=== PATIENT | male | born 1955 | race Caucasian/White ===

== ENCOUNTER → 2016-11-19 | Outpatient (CLI) | payer BC, OTHER ==
[~2016-11-19] MED LIST: AMOX500C3 PO; BUPR-79 PO; LISI-794 PO; MISCTAB30 PO; MULT-506 PO; OMEGCAP2 PO; SILD100T PO; ZNTT/150 PO
== END | disposition home or self-care (01) ==
LOC: C.LABBFT 13:31
PROVIDERS: ATTEND Internal Medicine
DX: Z11.59 Encounter for screening for other viral diseases (principal)

== ENCOUNTER → 2017-02-13 | Outpatient (CLI) | payer BC ==
--- NOTE | 2017-02-13 08:18 | DIAGNOSTIC IMAGING REPORT ---
RENAL ULTRASOUND HISTORY: Renal cyst. Follow-up. COMPARISON: Abdominal MRI 02/02/2016. FINDINGS: Right kidney: 12.1 cm. No hydronephrosis. Mild cortical lobulation/thinning. Normal corticomedullary differentiation. Left kidney: 17.6 cm. This includes the cysts within this measurement. No hydronephrosis. Mild cortical lobulation/thinning. Normal cortical measured differentiation. Multiple cysts within the left kidney. There may be septated cyst within the interpolar region versus multiple cysts. These measure in total 7.1 x 5.4 x 4.8 cm. These are not significantly changed. There is also a stable 3.7 cm cyst within the upper pole. Bladder: No bladder wall thickening. The bilateral ureteral jets were identified. Multiple hyperechoic lesions within the liver consistent with hemangiomas. Dominant lesion measures 2.2 cm. This remains unchanged IMPRESSION: 1. Multiple left renal cysts which are not significantly changed. 2. Mild bilateral cortical renal thinning/lobulation. 3. No hydronephrosis. 4. No significant change in the hyperechoic lesions within the liver which favor hemangiomas. Electronically signed by: Andrzej Pierson M.D. 02/13/2017 8:16 AM Dictated Date/Time: 02/13/2017 8:12 AM
[2017-02-13 09:55] LABS: BLOOD UREA NITROGEN 20 mg/dl (7-18); CREATININE 0.91 mg/dl (0.60-1.40)
[2017-02-13 09:56] LABS: BUN/CREATININE RATIO 22.3 (10-20)
[2017-02-13 10:00] LABS: PROSTATE SPECIFIC ANTIGEN < 0.010 ng/ml (0.000-4.000)
== END | disposition home or self-care (01) ==
LOC: C.ULTR 07:23
PROVIDERS: ATTEND Urology
DX: N28.1 Cyst of kidney, acquired (principal); N52.9 Male erectile dysfunction, unspecified; C61 Malignant neoplasm of prostate

== ENCOUNTER → 2017-02-28 | Outpatient (CLI) | payer BC ==
[2017-02-28 18:22] LABS: ALT/SGPT 42 U/L (12-78); AST/SGOT 29 U/L (15-37); BLOOD UREA NITROGEN 31 mg/dl (7-18); BUN/CREATININE RATIO 28.4 (10-20); CALCIUM 9.1 mg/dl (8.5-10.1); CARBON DIOXIDE 29 mmol/L (21-32); CHLORIDE 101 mmol/L (98-107); GLUCOSE 124 mg/dl (70-99); POTASSIUM 3.8 mmol/L (3.5-5.1); SODIUM 138 mmol/L (136-145)
[2017-02-28 19:02] LABS: CHOLESTEROL/HDL RATIO 2.6
--- NOTE | 2017-03-30 14:12 | PROGRESS NOTE ---
DATE: 03/30/2017 SUBJECTIVE: Adriano looks good today, but his conversation is still rambling and tangential but to my recollection this is his baseline. He is apparently going to be going home either today or tomorrow. I do not see any medical issues that have risen and again, his evaluation with MRI scans, EEGs, laboratory studies, etc have failed to detect any reason for his transient confusion, which now seemingly has cleared. His ammonia levels are normal. His back on his L-carnitine. His phenobarb level is in the higher range, but I think he probably stays there and at this point, I do not think we need to do anything else neurologically. He probably should be followed episodically by local neurologist and in the past, he has seen Dr. Lee. I do not know if he has seen anybody in the [facility] since then, but it might not be a bad idea to have him seen on a routine basis, probably yearly by Dr. Bateman or myself, BENY Ledesma or Brittney Rico PA-C. These arrangements can be made after discharge. BORIS
== END | disposition home or self-care (01) ==
LOC: C.LABBFT 11:50
PROVIDERS: ATTEND Physician Assistant Medical
DX: E78.5 Hyperlipidemia, unspecified (principal); I10 Essential (primary) hypertension

== ENCOUNTER → 2017-05-13 | Outpatient (CLI) | payer BC | END | disposition home or self-care (01) | LOC: C.RDSM 07:30 | PROVIDERS: ATTEND Physical Medicine & Rehabilitation Sports Medicine | DX: Z96.651 Presence of right artificial knee joint (principal) ==

== ENCOUNTER → 2017-07-16 | Outpatient (CLI) | payer BC ==
[2017-07-16 13:28] LABS: ALT/SGPT 35 U/L (12-78); AST/SGOT 29 U/L (15-37); BLOOD UREA NITROGEN 28 mg/dl (7-18); CHOLESTEROL 131 mg/dl (0-200)
[2017-07-16 13:31] LABS: CHOLESTEROL/HDL RATIO 1.9; HDL CHOLESTEROL 70 mg/dl; LDL CHOLESTEROL CALCULATED 51 mg/dl; TRIGLYCERIDES 52 mg/dl (0-150); VERY LOW DENSITY LIPOPROT CALC 10 mg/dl
== END | disposition home or self-care (01) ==
LOC: C.LABBFT 07:38
PROVIDERS: ATTEND Physician Assistant Medical
DX: E78.5 Hyperlipidemia, unspecified (principal); I10 Essential (primary) hypertension

== ENCOUNTER → 2017-07-24 | Outpatient (CLI) | payer BC ==
--- NOTE | 2017-07-24 10:24 | DIAGNOSTIC IMAGING REPORT ---
LEFT WRIST 4 VIEWS CLINICAL HISTORY: Left wrist pain. Fall. FINDINGS: 4 views of left wrist are obtained. No prior studies are available for comparison at the time of dictation. The skeletal structures are well mineralized. No fracture is identified. Arthritic change is seen at the distal radioulnar articulation with bony overgrowth and negative ulnar variance. The overlying soft tissues are within normal limits. IMPRESSION: 1. No fracture is identified. Consider short-term radiographic follow-up if there is strong clinical concern for occult fracture. 2. Arthritic change is noted at the distal radioulnar joint. Electronically signed by: Jg Munoz M.D. 07/24/2017 10:23 AM Dictated Date/Time: 07/24/2017 10:21 AM
== END | disposition home or self-care (01) ==
LOC: C.RAD1850 09:58
PROVIDERS: ATTEND Internal Medicine
DX: M25.532 Pain in left wrist (principal); M89.8X3 Other specified disorders of bone, forearm

== ENCOUNTER → 2017-08-21 | Outpatient (CLI) | payer BC ==
[~2017-08-21] MED LIST changes: +GADAVIST IV PRN
--- NOTE | 2017-08-21 13:58 | DIAGNOSTIC IMAGING REPORT ---
FLUOROSCOPIC GUIDED RIGHT SHOULDER ARTHROGRAM FLUOROSCOPY TIME: 19 seconds HISTORY: Acute left wrist pain. PROCEDURE: After obtaining written informed consent, the patient was placed supine on the fluoroscopy table with the left arm at the patient's side and the wrist slightly flexed. A suitable site for needle insertion was marked using fluoroscopic guidance. The left wrist was prepped and draped in the usual sterile fashion. 1% lidocaine was used for skin, subcutaneous and deep soft tissue anesthesia. Under intermittent fluoroscopic guidance, a 25 gauge 1.5 inch needle was inserted into the dorsal aspect of the left radiocarpal joint. A total of 2 mL of one-to-one mixture of dilute Magnevist (0.1 cc in 10 cc saline) and Optiray 300 were injected. The needle was then removed. There were no apparent complications. The patient was transported to for further imaging. IMPRESSION: Fluoroscopic-guided left wrist arthrogram without immediate complication. MR portion of the examination will be dictated separately. The above report was generated using voice recognition software. It may contain grammatical, syntax or spelling errors. Electronically signed by: Teo Hartman M.D. 08/21/2017 1:56 PM Dictated Date/Time: 08/21/2017 1:53 PM
--- NOTE | 2017-08-21 14:53 | DIAGNOSTIC IMAGING REPORT ---
LEFT WRIST MRI ARTHROGRAM HISTORY: LEFT WRIST PAIN TECHNIQUE: Multiple multisequence MRI of the left wrist was performed following the intra-articular injection of contrast. COMPARISON STUDY: Left wrist 07/24/2017. FINDINGS: No fracture or dislocation within the left wrist. There are few small areas of cystic change within the proximal scaphoid and triquetral bone likely due to long-standing degenerative change. Abnormal appearance to the mid and dorsal bands of the scapholunate ligament consistent with a tear. This accounts for the contrast within the mid carpal row. The volar band appears intact. There is no scapholunate dissociation at this time. The lunotriquetral ligament appears intact. Increased signal within the meniscus homologue consistent with degeneration without definite tear. There is increased T2 signal within the extensor carpi ulnaris tendon at the level of the ulnar styloid consistent with a tendinopathy. The remaining components of the TFCC appear intact. The median nerve and volar tendons are normal in course, caliber, and signal intensity. IMPRESSION: 1. Focal tears within the mid and dorsal bands of the scapholunate ligament. However, the volar band appears intact. No scapholunate dissociation at this time. 2. Extensor carpi ulnaris tendinopathy. 3. No fracture or dislocation within the left wrist. Electronically signed by: Andrzej Pierson M.D. 08/21/2017 2:52 PM Dictated Date/Time: 08/21/2017 2:23 PM
== END | disposition home or self-care (01) ==
LOC: C.MRIBC 12:25
PROVIDERS: ATTEND Family Medicine Sports Medicine
DX: M25.532 Pain in left wrist (principal)

== ENCOUNTER → 2017-10-10 | Outpatient (CLI) | payer BC ==
[~2017-10-10] MED LIST changes: -GADAVIST IV PRN
== END | disposition home or self-care (01) ==
LOC: C.RDSM 09:53
PROVIDERS: ATTEND Orthopaedic Surgery
DX: M25.532 Pain in left wrist (principal)

== ENCOUNTER → 2018-02-04 | Outpatient (CLI) | payer BC ==
[~2018-02-04] MED LIST changes: +RANI150T85 PO; -ZNTT/150 PO
[2018-02-04 15:27] LABS: BLOOD UREA NITROGEN 20 mg/dl (7-18); CREATININE 1.06 mg/dl (0.60-1.40)
== END | disposition home or self-care (01) ==
LOC: C.LABBFT 09:50
PROVIDERS: ATTEND Urology
DX: E78.00 Pure hypercholesterolemia, unspecified (principal); C61 Malignant neoplasm of prostate; N52.9 Male erectile dysfunction, unspecified

== ENCOUNTER → 2018-02-19 | Outpatient (CLI) | payer BC ==
[~2018-02-19] MED LIST changes: +ATOR-22 PO; +CYCL10TA6 PO; +HYDR25TA4 PO; +LSN20 PO; +OMEG120017 PO
--- NOTE | 2018-02-19 08:37 | DIAGNOSTIC IMAGING REPORT ---
(RENAL)RETROPERITON COMP HISTORY: Renal insufficiency N52.9 Organic [id number] Renal cystno latex allergy COMPARISON: 02/13/2017 FINDINGS: Right kidney: Maximum linear dimension 11 cm. No evidence for hydronephrosis. Moderate cortical scarring and cortical thinning. Left kidney: Maximum dimension 15 cm. Multiple left renal cyst with several internal septations. These cysts are unchanged from the prior study in terms of size as well as configuration. No evidence for hydronephrosis. Moderate renal cortical scarring and cortical thinning. Normal corticomedullary differentiation and cortical thickness. Bladder: No bladder wall thickening. The bilateral ureteral jets were identified. IMPRESSION: 1. No evidence renal hydronephrosis. 2. Bilateral renal cortical scarring and cortical thinning unchanged from the prior study of 2017. 3. Several left renal cysts several of which contain internal septations. These are unchanged from the prior exam. The above report was generated using voice recognition software. It may contain grammatical, syntax or spelling errors. Electronically signed by: Kishan Thompson M.D. 02/19/2018 8:36 AM Dictated Date/Time: 02/19/2018 8:34 AM
== END | disposition home or self-care (01) ==
LOC: C.ULTR 07:49
PROVIDERS: ATTEND Urology
DX: N52.9 Male erectile dysfunction, unspecified (principal); N28.1 Cyst of kidney, acquired; N28.89 Other specified disorders of kidney and ureter

== ENCOUNTER 2024-06-25 08:34 | Observation (INO) ==
--- NOTE | 2024-05-13 14:56 | PAT Medication Instructions ---
Medication Instructions Date of Service May 13, 2024 Home Medications Medication Instructions Recorded famotidine 20 mg tablet 20 mg PO BID PRN acid reflux #180 02/24/20 tabs atorvastatin 20 mg tablet 20 mg PO HS #90 tabs 07/05/23 lisinopril 20 mg tablet 20 mg PO BID #180 tabs 07/05/23 hydrochlorothiazide 25 mg tablet 25 mg PO QAM #90 tabs 03/20/24 diclofenac sodium 1 % topical gel 2 gm topical QID PRN Pain multivitamin (Multiple Vitamins tablet) 1 tab PO QAM famotidine 20 mg tablet 20 mg PO BID PRN acid reflux sildenafil 100 mg tablet (Viagra) 100 mg PO UD PRN sexual activity atorvastatin 20 mg tablet 20 mg PO HS lisinopril 20 mg tablet 20 mg PO BID hydrochlorothiazide 25 mg tablet 25 mg PO QAM aspirin 81 mg capsule 81 mg PO QAM fish, borage, flaxseed oils-omega 3,6,9 comb no.1 1,200 mg capsule ([place] 3-6-9) 1 cap PO QAM gabapentin 100 mg capsule 100 mg PO BID ASK your prescriber and surgeon aspirin 81 mg capsule 81 mg PO QAM STOP taking 2 weeks before surgery (or as soon as possible if surgery is within 2 weeks) fish, borage, flaxseed oils-omega 3,6,9 comb no.1 1,200 mg capsule ([place] 3-6-9) 1 cap PO QAM STOP taking 24 hours before surgery diclofenac sodium 1 % topical gel 2 gm topical QID PRN Pain DO NOT take the morning of surgery multivitamin (Multiple Vitamins tablet) 1 tab PO QAM sildenafil 100 mg tablet (Viagra) 100 mg PO UD PRN sexual activity lisinopril 20 mg tablet 20 mg PO BID hydrochlorothiazide 25 mg tablet 25 mg PO QAM Take morning of surgery With a small sip of water, OTHERWISE NOTHING TO EAT OR DRINK AFTER MIDNIGHT: famotidine 20 mg tablet 20 mg PO BID PRN acid reflux (if needed) gabapentin 100 mg capsule 100 mg PO BID Take evening before surgery famotidine 20 mg tablet 20 mg PO BID PRN acid reflux (if needed) atorvastatin 20 mg tablet 20 mg PO HS lisinopril 20 mg tablet 20 mg PO BID gabapentin 100 mg capsule 100 mg PO BID Other Notes If you have any questions please call us at [phone] or [phone] or [phone] or [phone]
--- NOTE | 2024-05-21 09:35 | Anesthesiology Consultation ---
Date of Service May 21, 2024 Assessment & Plan (1) Encounter for pre-operative examination: - Outpatient joint assessment: Patient is currently scheduled for inpatient pathway. If re-evaluated and patient/surgeon requests outpatient pathway, patient is acceptable candidate for outpatient joint program from anesthesia standpoint pending surgeon's office assessment of pt motivation/support/completion of same day joint program preop requirements. Chart Review Chart Review: Acceptable Risk for Surgery and Patient seen in Pre Admission Testing Teaching & Discussion Pre-Anesthesia Teaching/Discussion Notes: Instructed NPO after midnight before surgery, except medications with 15 cc of water. Medication instructions provided according to the PAT guidelines. History Surgery Operation Date: 06/25/24 07:00 Proposed Procedures p Left Total Knee Arthroplasty - Jonny Lyons MD Height/Weight Height: 6 ft Weight: 79.8 kg Allergies Allergy/AdvReac Type Severity Reaction Status Date / Time cephalexin Allergy Intermediate Itching Verified 05/12/24 13:13 ciprofloxacin Allergy Intermediate hand Verified 05/12/24 13:13 swelling dutasteride Allergy Intermediate Rash Verified 05/12/24 13:13 sulfamethoxazole Allergy Intermediate Itching Verified 05/12/24 13:13 [From Sulfamethoxazole-Trimethoprim] trimethoprim Allergy Intermediate Itching Verified 05/12/24 13:13 [From Sulfamethoxazole-Trimethoprim] verapamil Allergy Intermediate RASH Verified 05/12/24 13:13 Quinolones Allergy Unknown PT NOT Verified 05/12/24 13:13 SURE REACTION, OBSERVING ON ONE OF HIS LISTS Medications Home Medications Medication Instructions Recorded Confirmed Last Taken diclofenac sodium 1 % topical gel 2 gm topical QID PRN Pain #5 grams 07/30/19 05/12/24 08/26/23 08:00 multivitamin (Multiple Vitamins 1 tab PO QAM 07/30/19 05/12/24 08/26/23 08:00 tablet) famotidine 20 mg tablet 20 mg PO BID PRN acid reflux #180 02/24/20 05/12/24 08/26/23 15:00 tabs sildenafil 100 mg tablet (Viagra) 100 mg PO UD PRN sexual activity 12/27/22 05/12/24 Unknown atorvastatin 20 mg tablet 20 mg PO HS #90 tabs 07/05/23 05/12/24 08/26/23 20:00 lisinopril 20 mg tablet 20 mg PO BID #180 tabs 07/05/23 05/12/2408/26/23 20:00 hydrochlorothiazide 25 mg tablet 25 mg PO QAM #90 tabs 03/20/24 05/12/24 Unknown aspirin 81 mg capsule 81 mg PO QAM 05/12/24 05/12/24 Unknown fish, borage, flaxseed oils-omega 1 cap PO QAM 05/12/24 05/12/24 Unknown 3,6,9 comb no.1 1,200 mg capsule ([place] 3-6-9) gabapentin 100 mg capsule 100 mg PO BID 05/12/24 05/12/24 Unknown Past Medical History Medical History (Updated 05/21/24 @ 10:05 by Melanie Glez PA-C) Chronic kidney disease, stage 3a Depression Diverticulitis hx, last flare more than 1 year ago GERD (gastroesophageal reflux disease) controlled, stable per pt History of prostate cancer (02/2014) surgical intervention Hx of basal cell carcinoma s/p excision Hx of colonic polyps Hx-TIA (transient ischemic attack) ?CVA vs. TIA: ~2004 > doctor felt it was due to "stress and medications" per patient Hyperlipidemia Hypertension controlled, stable per pt Painful total knee replacement right knee, following with Dr Lyons Peripheral neuropathy feet Prediabetes diet controlled/monitoring Renal cyst monitoring Patient denies h/o seizures, heart attack, heart failure, blood clots/DVTs or blood transfusions. Exercise / Class Metabolic Activity II 4-5 Yardwork/Stairs/Walk up hill (denies chest discomfort or shortness of breath with one flight of stairs) Past Family History Family History Mother Nicotine dependence Emphysema lung COPD (chronic obstructive pulmonary disease) Father Nicotine dependence Pure hypercholesterolemia Lung cancer Hypertension Sister Ovarian cancer Cerebral aneurysm Other Myocardial infarction No family history of adverse response to anesthesia Denies family history of Prostate cancer Coronary heart disease Breast cancer Colorectal cancer Past Surgical History Surgical History History of appendectomy History of arthroscopy left hip History of arthroscopy of left shoulder History of colonoscopy History of hydrocelectomy (08/27/23) left History of inguinal hernia repair x3 History of lumbar surgery L2-L3 no hardware History of prostatectomy (02/2014) History of right hip replacement History of right knee joint replacement History of testicular surgery undescended testicle surgery (as a child) History of tonsillectomy S/P foot surgery bilateral tarsal tunnel release S/P trigger finger release Past Anesthesia History No Hx of Anesthesia Complications and No Family Hx of Anesthesia Complications History of PONV No Hx of PONV and Hx of Motion Sickness Social History Smoking Status: Former smoker Do You Dip or Chew Tobacco: No Smoking End Date: Hx Alcohol Use: Yes Alcohol type: beer, wine and hard liquor alcohol intake frequency: holidays/special occasions only Hx Substance Use: Yes substance use type: marijuana Substance Use Type Other:: prescribed marijuana, pills, advised Last Used Substance Other:: "recreationally" - advised on policy Review of Systems Occasional snoring, denies witnessed apneas. Patient denies chest pain, shortness of breath, dyspnea on exertion, fever, chills, cough, wheezing, or palpitations. Physical Exam Vital Signs Vitals BP 116/71 P 82 TEMP 98.2 SP02 96% on RA RESP 18 Physical Patient resting comfortably in chair in no acute distress, alert and oriented, responding appropriately throughout visit Full cervical extension range of motion without pain TMD 3.5 finger breadths Mallampati Score 2 Dentition: several cap/crowns, denies chipped or loose teeth, implants or bridges Lungs: normal respiratory effort. Good air movement, clear throughout to auscultation, no adventitious breath sounds Cardiac: regular rate and rhythm, no murmurs noted Carotid arteries: negative bruit bilat Lab Results Anesthesia Preop Results Results Anesthesia Widget: WBC 4.91 K/ul (4.8-10.8) 05/21/24 Hgb 13.7 g/dl (14.0-18.0) L 05/21/24 Hct 41.3 % (42.0-52.0) L 05/21/24 Plt 214 K/uL (130-400) 05/21/24 Na 137 mmol/L (136-145) 05/21/24 K 4.4 mmol/L (3.5-5.1) 05/21/24 Cl 101 mmol/L (98-107) 05/21/24 CO2 29 mmol/L (21-32) 05/21/24 BUN 32 mg/dl (6-23) H 05/21/24 Creat 1.24 mg/dl (0.6-1.4) 05/21/24 Glucose Level 96 mg/dl (70-99(Fasting)) 05/21/24 PT 10.3 Seconds (9.0-12.0) 05/21/24 PTT 24 Seconds (21-31) 05/21/24 INR 0.9 (0.9-1.1) 05/21/24 Blood Type O Positive 05/21/24 Antibody Screen NEGATIVE 05/21/24 Testing Electrocardiogram Date: 05/21/24 Sinus rhythm with 1st degree AV block, rate 75 bpm Chest X-Ray Date: 08/19/23 No acute cardiopulmonary findings.
--- NOTE | 2024-06-19 13:35 | History & Physical Report ---
Date of Service June 19, 2024 Assessment & Plan (1) Left knee DJD: 68-year-old gentleman with a history of right knee replacement as well as a right hip replacement past with advanced left knee DJD. She is got some hip arthritis on the side as well but the knee seems to be worse. He is failed conservative treatment like to have his left knee fixed. Plan: Orgran taken to the operating do a left total knee replacement. There is cements this procedure explained and include but not limited to a DVT PE infection neurological injury vascular bleeding palm pain limb range of motion this is fairly of symptoms incomplete relief of symptoms need for further surgery in future excetra. The patient understands and desires to proceed. Informed consents obtained. We did talk about the fact that at some point he is a lot below the knee the left hip replaced as well. As far as discharge plans he is planning to be discharged to home. Likely use the [facility] home health program. Will plan on aspirin for DVT prophylaxis. Will have to be careful NSAID use as discussed in creatinine chronic kidney disease. (2) Painful total knee replacement, right: (3) History of total right knee replacement: History of Present Illness Chief Complaint: . Persistent left knee pain. Primary Care Provider: Romeo Galvan MD . The patient is a 68-year-old gentleman who presents for surgical treatment of his left knee. Is got a long history of orthopedic issues had his right knee replaced by Dr. Johnston in the right hip replacement done by Dr. Mims at [facility]. He continues to be bothered by left medial knee pain discomfort describes gotten worse over time. Is been through extensive conservative treatment which would become less successful. He does have some known hip arthritis as well but the knee bothers him more than the hip. He limps more as the day goes on. He like to have his knee fixed. Allergies Allergy/AdvReac Type Severity Reaction Status Date / Time cephalexin Allergy Intermediate Itching Verified 05/12/24 13:13 ciprofloxacin Allergy Intermediate hand Verified 05/12/24 13:13 swelling dutasteride Allergy Intermediate Rash Verified 05/12/24 13:13 sulfamethoxazole Allergy Intermediate Itching Verified 05/12/24 13:13 [From Sulfamethoxazole-Trimethoprim] trimethoprim Allergy Intermediate Itching Verified 05/12/24 13:13 [From Sulfamethoxazole-Trimethoprim] verapamil Allergy Intermediate RASH Verified 05/12/24 13:13 Quinolones Allergy Unknown PT NOT Verified 05/12/24 13:13 SURE REACTION, OBSERVING ON ONE OF HIS LISTS Home Medications Medication Instructions Recorded Confirmed Type diclofenac sodium 1 % topical gel 2 gm topical QID PRN Pain #5 grams 07/30/19 05/12/24 History multivitamin (Multiple Vitamins 1 tab PO QAM 07/30/19 05/12/24 History tablet) famotidine 20 mg tablet 20 mg PO BID PRN acid reflux #180 02/24/20 05/12/24 Rx tabs sildenafil 100 mg tablet (Viagra) 100 mg PO UD PRN sexual activity 12/27/22 05/12/24 History hydrochlorothiazide 25 mg tablet 25 mg PO QAM #90 tabs 03/20/24 05/12/24 Rx aspirin 81 mg capsule 81 mg PO QAM 05/12/24 05/12/24 History fish, borage, flaxseed oils-omega 1 cap PO QAM 05/12/24 05/12/24 History 3,6,9 comb no.1 1,200 mg capsule ([place] 3-6-9) gabapentin 100 mg capsule 100 mg PO BID 05/12/24 05/12/24 History atorvastatin 20 mg tablet 20 mg PO HS #90 tabs 06/04/24 Rx lisinopril 20 mg tablet 20 mg PO BID #180 tabs 06/04/24 Rx Past Med/Surg History Problem List Left knee DJD S/P trigger finger release S/P left rotator cuff repair Painful total knee replacement, right History of right hip replacement History of total right knee replacement Rotator cuff tear Shoulder pain Left upper arm pain Trigger finger, left ring finger Right knee pain Tendinopathy of left biceps Hydrocele Complex renal cyst History of colon polyps Erectile dysfunction Prediabetes Cervicalgia Depressive disorder Gastroesophageal reflux disease Herpes zoster without complication hx Hypercholesterolemia Lower back pain Retention of urine resolved Stroke syndrome pt denies Tarsal tunnel syndrome Liver lesion Hypertension Hernia Medical History Chronic kidney disease, stage 3a Prediabetes diet controlled/monitoring Hx of colonic polyps Depression Peripheral neuropathy feet Hypertension controlled, stable per pt Hx of basal cell carcinoma s/p excision Hx-TIA (transient ischemic attack) ?CVA vs. TIA: ~2004 > doctor felt it was due to "stress and medications" per patient History of prostate cancer (02/2014) surgical intervention Painful total knee replacement right knee, following with Dr Lyons GERD (gastroesophageal reflux disease) controlled, stable per pt Hyperlipidemia Renal cyst monitoring Diverticulitis hx, last flare more than 1 year ago Surgical History History of right knee joint replacement History of right hip replacement S/P trigger finger release History of hydrocelectomy (08/27/23) left S/P foot surgery bilateral tarsal tunnel release History of testicular surgery undescended testicle surgery (as a child) History of arthroscopy of left shoulder History of lumbar surgery L2-L3 no hardware History of colonoscopy History of tonsillectomy History of arthroscopy left hip History of inguinal hernia repair x3 History of appendectomy History of prostatectomy (02/2014) Family History Mother Nicotine dependence Emphysema lung COPD (chronic obstructive pulmonary disease) Father Nicotine dependence Pure hypercholesterolemia Lung cancer Hypertension Sister Ovarian cancer Cerebral aneurysm Other Myocardial infarction No family history of adverse response to anesthesia Denies family history of Prostate cancer Coronary heart disease Breast cancer Colorectal cancer Social History Smoking Status: Former smoker Tobacco Type: Cigarettes Second Hand Exposure: No; Do You Dip or Chew Tobacco: No; Hx Alcohol Use: Yes Alcohol type: beer, wine and hard liquor Hx Substance Use: Yes Last Used Substance Other:: "recreationally" - advised on policy Substance Use Type Other:: prescribed marijuana, pills, advised Preferred Language: Luxembourger Communication Ability: Effective Visual Impairment: No Limitations Hearing Ability: Normal Flooring Machine Feeder Required: No Beliefs That Will Affect Care: None marital status: Current Living Situation: Spouse current occupational status: retired Feels Safe at Home: Yes Childhood Exposure to Second-Hand Smoke: Yes Diet: regular Diet Comment: Healthy Diet caffeine: Yes (1.c coffee daily) Dental Care, Regularly: Yes Physical Activity Frequency: Daily Seatbelt Use: always Sunscreen Use: Yes Assistive Devices: Glasses Review of Systems All systems reviewed & are unremarkable except as noted in HPI & below. Physical Exam . Physical examination reveals a pleasant middle-age male who looked in pretty good health. Examination of the left knee reveals patient ambulates independently. Fairly thin soft tissue envelope. Is a small knee effusion. He is tender over the medial joint line. Varus alignment to his knee. Range of motion about 5-1 20. He does have some stiffness little bit of pain with hip motion as well. Negative straight leg raise. Constitutional WD/WN, vitals as above Neck trachea midline, no thyromegaly Respiratory normal respiratory effort, lungs clear to auscultation Cardiovascular RRR, no murmur, no edema Gastrointestinal (Abdomen) normal bowel sounds, soft, nontender, no hepatosplenomegaly Results & Data Results & Data Laboratory Results . Diagnostic Findings . X-rays of the left knee were reviewed. She has advanced left knee DJD please got complete loss of the medial joint space. The right knee replacement looks to be in pretty good position without obvious signs of problems. X-rays of the hips reveal some moderate left hip arthritis. PG Care Time/CCT Total # of Minutes Spent Total Time Spent with Patient: Total time spent is greater than 50% in coordination of care (as documented) at patient's floor/unit and/or counseling patient: Coding Level of Care Code None Diagnoses Left knee DJD M17.12 Painful total knee replacement, right T84.84XA; Z96.651 History of total right knee replacement Z96.651
[~2024-06-25 08:34] MED LIST changes: -AMOX500C3 PO; -ATOR-22 PO; +BUPIVACAINE 0.25% PF 30 ML VIAL ONE; +BUPIVACAINE 0.5 % 5 MG/1 ML PF 10ML VIAL ONE; -BUPR-79 PO; -CYCL10TA6 PO; -HYDR25TA4 PO; -LISI-794 PO; -LSN20 PO; -MISCTAB30 PO; -MULT-506 PO; -OMEG120017 PO; -OMEGCAP2 PO; -RANI150T85 PO; -SILD100T PO
--- NOTE | 2024-06-25 08:56 | History & Physical Bridge Note ---
Date of Service June 25, 2024 History & Physical Bridge Note I have examined the patient, reviewed the History & Physical and in the interval since the performance of the History & Physical I have noted the following changes of clinical significance: no changes noted
[2024-06-25] MEDS ORDERED: fentaNYL citrate PF 100 MCG/2 ML VIAL ONE (09:06)
[2024-06-25] MEDS ORDERED: MIDAZOLAM HCL 1 MG/ML 2ML VIAL ONE (09:06)
[2024-06-25] MEDS: ACETAMINOPHEN 500 MG TAB PO SCH ×2 (09:23→15:49)
[2024-06-25] MEDS: FAMOTIDINE 20 MG TAB PO SCH (09:23)
[2024-06-25] MEDS: LR 500ML BOLUS, THEN 15ML/HR IV SCH (09:24)
[2024-06-25] MEDS: CeleBREX 200 MG CAP PO SCH (09:24)
[2024-06-25] MEDS: METOCLOPRAMIDE HCL 10 MG TABLET PO SCH (09:24)
[2024-06-25] MEDS: dexAMETHasone**PF** 10 MG/ML VIAL IV SCH (09:24)
[2024-06-25] MEDS: LR 60ML/HR IV SCH (09:24)
[2024-06-25] MEDS ORDERED: ONDANSETRON INJ 2 MG/ML 2 ML VIAL IV PRN ×2 (10:23→15:01)
[2024-06-25] MEDS ORDERED: ATROPINE SULFATE 0.1 MG/ML 10ML SYR IV PRN (10:23)
[2024-06-25] MEDS ORDERED: fentaNYL citrate PF 100 MCG/2 ML VIAL IV PRN (10:23)
[2024-06-25] MEDS ORDERED: ePHEDrine sulfate 50 MG/ML AMP IV PRN (10:23)
[2024-06-25] MEDS: ceFAZolin 2000MG 2,000 MG/15 ML SYR IV SCH ×2 (11:38→20:22)
[2024-06-25] MEDS ORDERED: PHENYLEPHRINE 100MCG/ML 10ML SYR IV ONE (11:51)
[2024-06-25] MEDS ORDERED: ONDANSETRON INJ 2 MG/ML 2 ML VIAL ONE (11:51)
[2024-06-25] MEDS ORDERED: PROPOFOL IV EMULSION 10 MG/ML 20 ML VIAL IV ONE ×2 (11:51→12:48)
[2024-06-25] MEDS: ROPIV 0.5% 246mg, Ketorolac 30mg, EPINEPHrine 0.5mg in NSS INFIL SCH (12:13)
[2024-06-25] MEDS: ORTHO JOINT ANESTHETIC ONE (12:13)
[2024-06-25] MEDS ORDERED: ePHEDrine sulfate 50 MG/5 ML SYR ONE (12:45)
[2024-06-25] MEDS: TRANEXAMIC ACID 1,000 MG **IV Intra-op IV SCH (12:48)
[2024-06-25] MEDS ORDERED: PHENYLEPHRINE HCL 10 MG/ML VIAL ONE (12:53)
[2024-06-25] MEDS ORDERED: ESMOLOL HCL INJ 10 MG/ML 10ML VIAL IV ONE (13:14)
--- NOTE | 2024-06-25 13:32 | Operative Report ---
PG Post Operative Report Pre & Post Diagnosis Operation Date: 06/25/24 10:40 Pre-Op Diagnosis: Left Knee Degenerative Joint Disease Post-Op Diagnosis: Left Knee Degenerative Joint Disease I identified the patient and participated in the time-out.: Yes Procedure Operation Date: 06/25/24 10:40 Actual Procedures p Left Total Knee Arthroplasty(Left) - Jonny Lyons MD Surgeon Jonny Lyons MD [employer] Fitter Mejia Little PA-C Estimated Blood Loss 50 Findings Consistent with Post-Op Diagnosis Specimens Left knee sent for pathology. Anesthesia Type Spinal MAC Complications none Disposition Accompanied Patient To Recovery: No Indications Patient is a 68-year-old gentleman with a long history of orthopedic joint problems over the years. He said right hip and right knee replaced in the past. Over the past several years he developed increasing discomfort in his left leg more than his left hip. He admitted presented to therapy. Which became less successful over time. X-rays show advanced left knee arthritis. He elected to his left total knee arthroplasty. Description of Procedure Operative implants consist of: 1. Biomet Vanguard size 67.5 left posterior stabilized femoral component. 2. Biomet size 75 tibial tray. 3. 10 mm post stabilized polyethylene insert. 4. 31 x 8 all poly patella. The patient was taken the operating, identified, placed on the operating table in the supine position. All contact areas were appropriately padded. IV antibiotics tried by anesthesia team. Spinal anesthetic and adductor canal block had been provided in the holding area. A left thigh tourniquet was then placed. The left lower extremity was then prepped and draped in usual sterile fashion. The left leg was elevated exsanguinated with use of an Esmarch and the tourniquet was placed at 300 mmHg. An anterior approach to the left knee was then performed to longitudinal incision centered over the patella. Sharp dissection Through subcutaneous tissue down the extensor mechanism. A medial parapatellar arthrotomy incision was made. Some subperiosteal dissection was immediately. The fat pad was dissected over the patella tendon. The lateral patellofemoral ligament was released. Patella subluxated laterally and the knee was flexed. The osteophytes taken on distal femur. The ACL and PCL were then released from the distal femur the tibia subluxated anteriorly. The external tibial alignment jig was then placed on the anterior face of the tibia and adjusted 14 mm medially. Proximal tibial cut was made essentially flush with the most deficient aspect of the posterior medial tibial plateau. Some osteophytes taken off medially. The tibia sized to a size 75. Attention drawn the femur. The distal femur with a sharp drill. Intramedullary canal was suction. The left 6 degree valgus cutting guide was placed. The distal femoral cutting block was pinned in place. This femoral cut was made to take an additional 3 mm of bone off distal femur. The femur was then sized to a size 67.5. The AP cutting block was pinned parallel to the epicondylar axis which was 5 degrees of external rotation. The anterior cut, anterior chamfer, posterior cut, posterior chamfer cuts were made. The box cutting guide was placed in the just slight lateral and the box cut was made. The knee was flexed. The remnants of the medial and lateral menisci were excised. The osteophytes taken off the posterior aspect the femur. A trial femoral component was placed. The tibial tray was pinned Brittnee external rotation and the drill and stem punch were used to create defect in proximal tibia for the tibial tray. The knee was then trialed and the 10 mm insert fit most appropriately. Attention drawn the patella. The patella was cleaned of all soft tissue. Patella thickness measured 24 mm in thickness was cut down to 14. Was sized to a size 31 patella. The lug holes were drilled for 31 patella. The lateral osteophyte was removed. The patella button was placed. Knee was taken through range of motion and the patella tracked nicely with no thumbs test. Attention drawn to placing permanent components. All trial components were removed. Bone plug was placed in the distal femur limit blood loss. Double batch Palacos G cement was mixed. A Biomet Vanguard size 67.5 left posterior stabilized femoral component, size 35 tibial tray, 10 mm posterior Byce polyethylene insert, and a 31 x 8 all poly patella then cemented in place. The knee was brought out in full pentetate cement hardened. Final cement check was then performed. The pericapsular tissues were injected with total of 100 cc of Ortho mix. Patient did receive 1 g tranexamic acid. The tourniquet was let down for final tourniquet time of 58 minutes. Hemostasis assured with electrocautery. Extensor Meclomen closed with combination 1 PDS suture #1 Vicryl suture in a [id number] fashion. Extensor Meclomen checked found to be intact and subcutaneous tissue then closed with 2 Dexon suture in buried interrupted fashion skin was closed skin rosalee. The leg was then cleaned and dried and sterile dressed with Xeroform, 4 fours, sterile ABD pad, sterile cast padding, Georgi bandage were applied. Patient then transferred to recovery in stable condition. Patient tolerated procedure well and no complications. Mejia Little, my physician orthotics assistant, was present for the entire procedure. His assistance was essential and required for appropriate patient positioning, prepping and draping, surgical exposure, performing the technical details of the operation, placement the implants, closure of the wound, and placement of the sterile bandage. I attest to the content of the Intraoperative Record and any orders documented therein. Any exceptions are noted below.
--- NOTE | 2024-06-25 14:06 | XRay Report ---
XR knee LT 1 or 2V routine CLINICAL HISTORY: Surgical Post Op TECHNIQUE: 2 views of the left knee were obtained. Comparison: Comparison is made to knee radiographs 05/09/2015 FINDINGS: Patient is status post total knee arthroplasty with expected postsurgical changes including soft tiss ue swelling and subcutaneous emphysema. No periarticular lucency or hardware fracture is seen. IMPRESSION: Expected postoperative appearance status post placement of total knee arthroplasty. ACT 112: Negative or not required by law. Electronically signed by: Gunner Loza M.D. 06/25/2024 2:04 PM
--- NOTE | 2024-06-25 14:27 | Anesthesiology Progress Note ---
Date of Service June 25, 2024 Anesthesia Post Procedure Vital Signs Vital Signs: Temp Pulse Pulse Resp BP Pulse Ox O2 Del Method 06/25/24 14:15 88 12 105/69 97 Nasal Cannula 06/25/24 14:00 84 17 100/51 L 96 Nasal Cannula 06/25/24 13:50 89 16 103/55 L 96 Nasal Cannula 06/25/24 13:40 88 16 94/54 L 92 Room Air 06/25/24 13:30 92 H 16 99/49 L 92 Room Air 06/25/24 13:23 96.8 F L 93 H 12 80/50 L 92 Room Air 06/25/24 09:06 97.9 F 79 18 129/77 97 Room Air O2 Flow Rate 06/25/24 14:15 2 06/25/24 14:00 2 06/25/24 13:50 2 06/25/24 13:40 06/25/24 13:30 06/25/24 13:23 06/25/24 09:06 Transfer of Care Handoff Completed per policy Notes Mental Status: alert / awake / arousable and participated in evaluation Patient Amnestic to Procedure: Yes Nausea / Vomiting: adequately controlled Pain: adequately controlled Airway Patency, RR, SpO2: stable & adequate BP & HR: stable & adequate Hydration State: stable & adequate Neuraxial Anesthesia: was administered and sensory block is resolving Anesthetic Complications: no major complications apparent and Pt Satisfied with anesthetic care
[2024-06-25] MEDS ORDERED: KETOROLAC TROMETHAMINE 10 MG TABLET PO SCH (15:01)
[2024-06-25] MEDS ORDERED: HYDROmorphone INJ 0.5 MG/0.5 ML SYR IV PRN (15:01)
[2024-06-25] MEDS ORDERED: MAGNESIUM HYDROXIDE SUSP 30 ML UDC PO PRN (15:01)
[2024-06-25] MEDS ORDERED: NALOXONE HCL 0.4 MG/1 ML VIAL/CARP IV PRN (15:01)
[2024-06-25] MEDS ORDERED: FAMOTIDINE 20 MG TAB PO PRN (15:01)
[2024-06-25] MEDS ORDERED: bisacodyL 10 MG SUPP PR PRN (15:01)
[2024-06-25] MEDS ORDERED: METOCLOPRAMIDE HCL INJ 5 MG/ML 2 ML VIAL IV PRN (15:01)
[2024-06-25] MEDS ORDERED: DICLOFENAC SOD 1% GEL 100 GM TUBE EXT PRN (15:01)
[2024-06-25] MEDS ORDERED: NON-FORMULARY MEDICATION (Sildenafil [Viagra] 100 mg tablet) PO PRN (15:01)
[2024-06-25] MEDS: KETOROLAC TROMETHAMINE 15 MG/ML VIAL IV SCH (15:50)
[2024-06-25] MEDS: SODIUM CHLORIDE 0.9% 1,000 ML IV SCH (15:54)
[2024-06-25] MEDS: oxyCODONE HCL IR 5 MG TAB (IMMEDIATE RELEASE) PO PRN (17:34)
[2024-06-25] MEDS: ASCORBIC ACID 500 MG TAB PO SCH (17:35)
[2024-06-25 18:28] VITALS: RESP 16
[2024-06-25] MEDS: TRANEXAMIC ACID / 0.7% NACL 1,000 MG/100 ML BAG IV SCH (20:22)
[2024-06-25] MEDS: SENNA 8.6 MG TAB PO SCH (20:35)
[2024-06-25] MEDS: DOCUSATE SODIUM 100 MG CAP PO SCH (20:37)
[2024-06-25] MEDS: ATORVASTATIN 20 MG TAB PO SCH (20:37)
[2024-06-25] MEDS: lisinopril 20 MG TAB PO SCH (20:37)
[2024-06-25] MEDS: GABAPENTIN 100 MG CAP PO SCH (20:37)
[2024-06-25] MEDS: ASPIRIN 81 MG ECTAB PO SCH (20:37)
[2024-06-25] MEDS ORDERED: SENNA 8.6 MG TAB PO SCH (21:00)
[2024-06-26] MEDS: ALUMINUM/MAGNESIUM SUSP 30 ML UDC PO PRN (05:55)
[2024-06-26 06:05] LABS: Hematocrit (blood only) 32.2 % (42.0-52.0); Mean Corpuscular Hemoglobin 32.4 pg (25.0-34.0); Mean Corpuscular Hgb Conc 34.2 g/dL (32.0-36.0); Mean Platelet Volume 9.9 fL (9.4-12.4); Platelet Count 188 K/uL (130-400); RDW Coefficient of Variation 11.8 % (11.5-14.5); RDW Standard Deviation 40.2 fL (36.4-46.3); Red Blood Count 3.39 M/uL (4.70-6.10); White Blood Count 11.68 K/ul (4.8-10.8)
[2024-06-26 07:04] LABS: Anion Gap 9 (3-11); BUN Creatinine Ratio 26.6 (10-20); Blood Urea Nitrogen 51 mg/dl (6-23); Carbon Dioxide 21 mmol/L (21-32); Chloride 102 mmol/L (98-107); Creatinine Clr Calc Pharmacy 39.3 ml/min; Est GFR (Non-African American) 34.5 ml/min; Glucose 112 mg/dl (70-99(Fasting)); Sodium 132 mmol/L (136-145)
--- NOTE | 2024-06-26 07:15 | Orthopedic Progress Note ---
Date of Service June 26, 2024 Assessment & Plan (1) Status post left knee replacement: Plan: 68-year-old gentleman postop day 1 from left knee replacement doing pretty well. Pains controlled. He is neurologically intact. Creatinine slightly elevated and we will discontinue the Toradol. Plan: 1. DVT prophylaxis including thigh-high teds, SCDs, back on baby aspirin twice a day. 2. PT/OT. Weight-bear as tolerated left knee protocol. 3. Pain control doing okay with current pain regimen. 4. Elevated creatinine. Will get a hold of the Toradol. Will discontinue that. 5. Disposition plan to discharge to home with some home health today. (2) History of right hip replacement: (3) History of total right knee replacement: Admission and Anticipated Discharge Date Admission Date: June 25, 2024 Subjective 68-year-old male postop day 1 from left knee replacement. He is doing well. Pain is controlled. Most severe pain is a 5. No chest pain or shortness of breath. Had a reasonable night. Hoping to go home today. Physical Exam Physical Exam: Physical examination is a pleasant middle-aged male. I did awaken this morning. Examination of the left leg reveals the leg to be well aligned. Dressings clean dry and intact. Can dorsiflex and plantarflex his foot appropriately. He can do a straight leg raise. Neck: trachea midline, no thyromegaly Respiratory: normal respiratory effort, lungs clear to auscultation Cardiovascular: RRR, no murmur, no edema Gastrointestinal (Abdomen): normal bowel sounds, soft, nontender, no hepatosplenomegaly Results & Data Vital Signs (Past 12 Hours) Vital Signs Temp Pulse Resp BP BP Pulse Ox O2 Del Method 06/26/24 06:33 36.5 C 76 16 116/66 95 Room Air 06/26/24 03:48 36.5 C 75 16 127/71 96 Room Air 06/25/24 23:00 36.4 C L 85 16 124/70 93 Room Air 06/25/24 21:30 Room Air 06/25/24 19:20 36.4 C L 98 H 16 116/73 94 Room Air Laboratory Results Labs hemoglobin 11.0. Hematocrit 32.2. Electrolytes revealed creatinine slightly elevated at 1.92.
[2024-06-26 08:03] VITALS: TEMP 98.1; O2SAT 97
[2024-06-26] MEDS: OMEGA-3 (PURIFIED FISH OIL) 1 GM CAP PO SCH (08:20)
[2024-06-26] MEDS: hydroCHLOROthiazide 25 MG TAB PO SCH (08:20)
[2024-06-26] MEDS: TAMSULOSIN HCL 0.4 MG CAP PO SCH (08:20)
[2024-06-26] MEDS: MULTIVITAMIN TAB PO SCH (08:21)
[2024-06-26] MEDS: dexAMETHasone 10 MG in SYRINGE 0 ML IV SCH (08:22)
[2024-06-26 10:01] VITALS: BP 116/73; PULSE 90
--- NOTE | 2024-06-30 10:48 | Discharge Summary ---
Date of Service June 30, 2024 Discharge Data Procedures Performed Operation Date: 06/25/24 10:40 Actual Procedures p Left Total Knee Arthroplasty(Left) - Jonny Lyons MD Hospital Course (1) Status post left knee replacement: This is a 68 year old patient admitted on 06/25/24 and underwent total knee arthroplasty. He tolerated the procedure well and there were no complications. Transferred to the PACU post op and later to the orthopedic floor for further care. He was given ancef for antibiotic prophylaxis. He was also given HUSAM stockings, SCDs, and aspirin for DVT prophylaxis. Hemoglobin, hematocrit, and vital signs were monitored during his hospital stay and remained stable. Did not require any blood transfusions. There were no complications during his hospital stay. His creatinine was elevated and ketorolac was held. 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 On post op day #1 the patient was discharged home and set up with home health care. He was given printed discharge instructions including prescriptions for extra strength tylenol, aspirin, cefadroxil, ketorolac, zofran, senokot, oxycodone, and flomax. Continue physical therapy, weight bearing as tolerated. Continue HUSAM stockings. Follow up approximately 2 weeks post op or sooner if there are problems or concerns. Coding Level of Care Code None Diagnoses Status post left knee replacement Z96.652
== END 2024-06-26 10:21 | disposition home health service (06) ==
LOC: ASU 08:34 → 3E 08:34
DX: Z79.82 Long term (current) use of aspirin; Z88.2 Allergy status to sulfonamides; Z88.1 Allergy status to other antibiotic agents; I12.9 Hypertensive chronic kidney disease with stage 1 through stage 4 chronic kidney disease, or unspecified chronic kidney disease; Z86.73 Personal history of transient ischemic attack (TIA), and cerebral infarction without residual deficits; Z87.891 Personal history of nicotine dependence; K21.9 Gastro-esophageal reflux disease without esophagitis; Z79.899 Other long term (current) drug therapy; N18.31 Chronic kidney disease, stage 3a; Y84.8 Other medical procedures as the cause of abnormal reaction of the patient, or of later complication, without mention of misadventure at the time of the procedure; M25.762 Osteophyte, left knee; E78.5 Hyperlipidemia, unspecified; T84.84XA Pain due to internal orthopedic prosthetic devices, implants and grafts, initial encounter; M17.12 Unilateral primary osteoarthritis, left knee; Z88.8 Allergy status to other drugs, medicaments and biological substances; Z96.641 Presence of right artificial hip joint

== ENCOUNTER 2024-11-26 06:18 | Observation (INO) ==
--- NOTE | 2024-10-22 15:27 | PAT Medication Instructions ---
Medication Instructions Date of Service October 22, 2024 Home Medications Medication Instructions Recorded famotidine 20 mg tablet 20 mg PO BID PRN acid reflux #180 02/24/20 tabs hydrochlorothiazide 25 mg tablet 25 mg PO QAM #90 tabs 03/20/24 lisinopril 20 mg tablet 20 mg PO BID #180 tabs 06/04/24 ondansetron 4 mg disintegrating 4 mg PO Q8 PRN nausea #20 tabs 06/24/24 tablet diclofenac sodium 1 % topical gel 2 gm topical QID PRN multivitamin (Multiple Vitamins tablet) 1 tab PO QAM famotidine 20 mg tablet 20 mg PO BID PRN sildenafil 100 mg tablet (Viagra) 100 mg PO UD PRN hydrochlorothiazide 25 mg tablet 25 mg PO QAM aspirin 81 mg capsule 81 mg PO QAM fish, borage, flaxseed oils-omega 3,6,9 comb no.1 1,200 mg capsule ([place] 3-6-9) 1 cap PO QAM gabapentin 100 mg capsule (Neurontin) 100 mg PO BID lisinopril 20 mg tablet 20 mg PO BID ondansetron 4 mg disintegrating tablet 4 mg PO Q8 PRN acetaminophen 500 mg tablet (Tylenol Extra Strength) 1,000 mg PO TID PRN atorvastatin 20 mg tablet (Lipitor) 20 mg PO HS ASK your surgeon for instructions diclofenac sodium 1 % topical gel 2 gm topical QID PRN ASK your prescriber and surgeon aspirin 81 mg capsule 81 mg PO QAM STOP taking 2 weeks before surgery (or as soon as possible if surgery is within 2 weeks) fish, borage, flaxseed oils-omega 3,6,9 comb no.1 1,200 mg capsule ([place] 3-6-9) 1 cap PO QAM DO NOT take the morning of surgery multivitamin (Multiple Vitamins tablet) 1 tab PO QAM sildenafil 100 mg tablet (Viagra) 100 mg PO UD PRN hydrochlorothiazide 25 mg tablet 25 mg PO QAM lisinopril 20 mg tablet 20 mg PO BID Take morning of surgery With a small sip of water, OTHERWISE NOTHING TO EAT OR DRINK AFTER MIDNIGHT: famotidine 20 mg tablet 20 mg PO BID PRN(if needed) gabapentin 100 mg capsule (Neurontin) 100 mg PO BID ondansetron 4 mg disintegrating tablet 4 mg PO Q8 PRN(if needed) acetaminophen 500 mg tablet (Tylenol Extra Strength) 1,000 mg PO TID PRN(if needed) Take evening before surgery famotidine 20 mg tablet 20 mg PO BID PRN(if needed) gabapentin 100 mg capsule (Neurontin) 100 mg PO BID lisinopril 20 mg tablet 20 mg PO BID ondansetron 4 mg disintegrating tablet 4 mg PO Q8 PRN(if needed) acetaminophen 500 mg tablet (Tylenol Extra Strength) 1,000 mg PO TID PRN(if needed) atorvastatin 20 mg tablet (Lipitor) 20 mg PO HS Other Notes If you have any questions please call us at [phone] or [phone] or [phone] or [phone]
--- NOTE | 2024-11-05 08:48 | Anesthesiology Consultation ---
Date of Service November 05, 2024 Assessment & Plan (1) Encounter for pre-operative examination: Plan - s/p left TKA 06/25/24 SAB L3-L4, L2-3 3 attempts + PNB. - Outpatient joint assessment: Patient is currently scheduled for inpatient pathway. If re-evaluated and patient/surgeon requests outpatient pathway, patient is acceptable candidate for outpatient joint program from anesthesia standpoint pending surgeon's office assessment of pt motivation/support/completion of same day joint program preop requirements. Chart Review Chart Review: Acceptable Risk for Surgery and Patient seen in Pre Admission Testing Teaching & Discussion Pre-Anesthesia Teaching/Discussion Notes: Instructed NPO after midnight before surgery, except medications with 15 cc of water. Medication instructions provided according to the PAT guidelines. History Surgery Operation Date: 11/26/24 07:00 Proposed Procedures p Left Total Hip Arthroplasty - Jonny Lyons MD Height/Weight Height: 5 ft 11 in Weight: 79.1 kg Allergies Allergy/AdvReac Type Severity Reaction Status Date / Time cephalexin Allergy Intermediate Itching Verified 10/22/24 11:53 dutasteride Allergy Intermediate Rash Verified 10/22/24 11:53 sulfamethoxazole Allergy Intermediate Itching Verified 10/22/24 11:53 [From Sulfamethoxazole-Trimethoprim] trimethoprim Allergy Intermediate Itching Verified 10/22/24 11:53 [From Sulfamethoxazole-Trimethoprim] verapamil Allergy Intermediate Rash Verified 10/22/24 11:53 Quinolones Allergy Unknown Unknown Verified 10/22/24 11:53 ciprofloxacin AdvReac Intermediate hand Verified 10/22/24 11:53 swelling Medications Home Medications Medication Instructions Recorded Confirmed Last Taken diclofenac sodium 1 % topical gel 2 gm topical QID PRN Pain #5 grams 07/30/19 10/22/24 08/26/23 08:00 multivitamin (Multiple Vitamins 1 tab PO QAM 07/30/19 10/22/24 09/01/24 tablet) famotidine 20 mg tablet 20 mg PO BID PRN acid reflux #180 02/24/20 10/22/24 06/24/24 14:00 tabs sildenafil 100 mg tablet (Viagra) 100 mg PO UD PRN sexual activity 12/27/22 10/22/24 Unknown hydrochlorothiazide 25 mg tablet 25 mg PO QAM #90 tabs 03/20/24 10/22/24 09/01/24 aspirin 81 mg capsule 81 mg PO QAM 05/12/24 10/22/24 06/24/24 09:00 fish, borage, flaxseed oils-omega 1 cap PO QAM 05/12/24 10/22/24 Unknown 3,6,9 comb no.1 1,200 mg capsule ([place] 3-6-9) gabapentin 100 mg capsule 100 mg PO BID 05/12/24 10/22/24 09/01/24 (Neurontin) lisinopril 20 mg tablet 20 mg PO BID #180 tabs 06/04/24 10/22/24 09/01/24 ondansetron 4 mg disintegrating 4 mg PO Q8 PRN nausea #20 tabs 06/24/24 10/22/24 Unknown tablet acetaminophen 500 mg tablet 1,000 mg PO TID PRN pain 08/26/24 10/22/24 Unknown (Tylenol Extra Strength) atorvastatin 20 mg tablet (Lipitor) 20 mg PO HS 08/26/24 10/22/24 09/01/24 Past Medical History Medical History Chronic kidney disease, stage 3a Depression Diverticulitis hx, last flare more than 1 year ago GERD (gastroesophageal reflux disease) controlled, stable per pt History of prostate cancer (02/2014) surgical intervention Hx of basal cell carcinoma s/p excision Hx of colonic polyps Hx-TIA (transient ischemic attack) (~2004) ?CVA vs. TIA: ~2004 > doctor felt it was due to "stress and medications" per patient Hyperlipidemia Hypertension controlled, stable per pt Left knee DJD Painful total knee replacement right knee, following with Dr Lyons Peripheral neuropathy feet Prediabetes pt denies Renal cyst monitoring Patient denies h/o seizures, heart attack, heart failure, blood clots/DVTs or blood transfusions. Exercise / Class Metabolic Activity II 4-5 Yardwork/Stairs/Walk up hill (denies chest discomfort or shortness of breath with one flight of stairs) Past Family History Family History Mother Nicotine dependence Emphysema lung COPD (chronic obstructive pulmonary disease) Father Nicotine dependence Pure hypercholesterolemia Lung cancer Hypertension Sister Ovarian cancer Cerebral aneurysm Other Myocardial infarction No family history of adverse response to anesthesia Denies family history of Prostate cancer Coronary heart disease Breast cancer Colorectal cancer Past Surgical History Surgical History (Updated 11/05/24 @ 10:31 by Melanie Glez PA-C) History of appendectomy History of arthroscopy left hip History of arthroscopy of left shoulder History of colonoscopy History of hydrocelectomy (08/27/23) left History of inguinal hernia repair x3 History of lumbar surgery L2-L3 no hardware History of prostatectomy (02/2014) History of right hip replacement History of right knee joint replacement History of testicular surgery undescended testicle surgery (as a child) History of tonsillectomy History of total left knee replacement 06/25/24 SAB L3-L4, L2-3 3 attempts + PNB. S/P foot surgery bilateral tarsal tunnel release S/P trigger finger release Past Anesthesia History No Hx of Anesthesia Complications and No Family Hx of Anesthesia Complications History of PONV No Hx of PONV and No Hx of Motion Sickness Social History Smoking Status: Former smoker Do You Dip or Chew Tobacco: No Smoking End Date: 40 yrs ago Hx Alcohol Use: Yes Alcohol type: wine alcohol intake frequency: a few times a week Hx Substance Use: No substance use type: marijuana Substance Use Type Other:: card Last Used Substance Other:: "recreationally" - advised on policy Review of Systems Snoring, denies witnessed apneas. Patient denies chest pain, shortness of breath, dyspnea on exertion, fever, chills, cough, wheezing, or palpitations. Physical Exam Vital Signs Vitals BP 110/72 P 86 TEMP 97.6 SP02 96% on RA RESP 19 Physical Patient resting comfortably in chair in no acute distress, alert and oriented, responding appropriately throughout visit Full cervical extension range of motion without pain TMD 3.5 finger breadths Mallampati Score 2 Dentition: several crowns, denies chipped or loose teeth, caps, implants or bridges Lungs: normal respiratory effort. Good air movement, clear throughout to auscultation, no adventitious breath sounds Cardiac: regular rate and rhythm, no murmurs noted Carotid arteries: negative bruit bilat Lab Results Anesthesia Preop Results Results Anesthesia Widget: WBC 3.98 K/ul (4.8-10.8) L 11/05/24 Hgb 14.4 g/dl (14.0-18.0) 11/05/24 Hct 43.7 % (42.0-52.0) 11/05/24 Plt 209 K/uL (130-400) 11/05/24 Na 139 mmol/L (136-145) 11/05/24 K 4.7 mmol/L (3.5-5.1) 11/05/24 Cl 103 mmol/L (98-107) 11/05/24 CO2 30 mmol/L (21-32) 11/05/24 BUN 47 mg/dl (6-23) H 11/05/24 Creat 1.41 mg/dl (0.6-1.4) H 11/05/24 Glucose Level 82 mg/dl (70-99(Fasting)) 11/05/24 PT 10.3 Seconds (9.0-12.0) 11/05/24 PTT 23 Seconds (21-31) 11/05/24 INR 0.9 (0.9-1.1) 11/05/24 Blood Type O Positive 11/05/24 Antibody Screen NEGATIVE 11/05/24 Testing Electrocardiogram Date: 05/21/24 Sinus rhythm with 1st degree AV block, rate 75 bpm Chest X-Ray Date: 11/05/24 No acute cardiopulmonary findings. Other Testing Renal CT 08/19/24 8.7 cm multiseptated cystic left renal lesion which contains a 1.1 cm enhancing peripheral nodule. This is unchanged since CT of February 04, 2024. The enhancing peripheral nodule has slowly increased in size from earlier exams. This remains suspicious for a neoplasm.
--- NOTE | 2024-11-21 10:01 | History & Physical Report ---
Date of Service November 21, 2024 Assessment & Plan (1) Arthritis of left hip: 69-year-old gentleman status post multiple joint replacements in the past with progressive left hip pain consistent with advanced hip arthritis. He is happy with his other joints for the most part. He would like to have his left hip replaced. Plan: Princess taken to the operating room and do a left total hip placement for the risks Mente this procedure. He understands. Informed consent was obtained. I totally do the best we can to make his leg lengths as equal as possible. Will follow-up with 2 weeks postop. Will use aspirin for DVT prophylaxis. (2) Painful total knee replacement: (3) Prediabetes: (4) Depression: (5) Hypertension: (6) Hx-TIA (transient ischemic attack): (7) Hyperlipidemia: History of Present Illness Chief Complaint: . Persistent left hip pain and discomfort. Primary Care Provider: Romeo Galvan MD . The patient is a 69-year-old gentleman who presents now for surgical treatment of his left hip. He has had a long history of multiple orthopedic issues and is now about 5 months out from the left knee replacement doing myself. He is doing quite well from this. He had his right knee replacement with Dr. Johnston 15 years ago and a right hip replacement done by Dr. Mims at [facility] over over 3 years ago. He is doing okay. His right knee continues to bother him some. He is mostly bothered by left hip pain discomfort and stiffness. Describes thigh pain buttock pain. It is limiting his activities. He would like to proceed with a left hip replacement. Allergies Allergy/AdvReac Type Severity Reaction Status Date / Time cephalexin Allergy Intermediate Itching Verified 10/22/24 11:53 dutasteride Allergy Intermediate Rash Verified 10/22/24 11:53 sulfamethoxazole Allergy Intermediate Itching Verified 10/22/24 11:53 [From Sulfamethoxazole-Trimethoprim] trimethoprim Allergy Intermediate Itching Verified 10/22/24 11:53 [From Sulfamethoxazole-Trimethoprim] verapamil Allergy Intermediate Rash Verified 10/22/24 11:53 Quinolones Allergy Unknown Unknown Verified 10/22/24 11:53 ciprofloxacin AdvReac Intermediate hand Verified 10/22/24 11:53 swelling Home Medications Medication Instructions Recorded Confirmed Type diclofenac sodium 1 % topical gel 2 gm topical QID PRN Pain #5 grams 07/30/19 10/22/24 History multivitamin (Multiple Vitamins 1 tab PO QAM 07/30/19 10/22/24 History tablet) famotidine 20 mg tablet 20 mg PO BID PRN acid reflux #180 02/24/20 10/22/24 Rx tabs sildenafil 100 mg tablet (Viagra) 100 mg PO UD PRN sexual activity 12/27/22 10/22/24 History hydrochlorothiazide 25 mg tablet 25 mg PO QAM #90 tabs 03/20/24 10/22/24 Rx aspirin 81 mg capsule 81 mg PO QAM 05/12/24 10/22/24 History fish, borage, flaxseed oils-omega 1 cap PO QAM 05/12/24 10/22/24 History 3,6,9 comb no.1 1,200 mg capsule ([place] 3-6-9) gabapentin 100 mg capsule 100 mg PO BID 05/12/24 10/22/24 History (Neurontin) lisinopril 20 mg tablet 20 mg PO BID #180 tabs 06/04/24 10/22/24 Rx ondansetron 4 mg disintegrating 4 mg PO Q8 PRN nausea #20 tabs 06/24/24 10/22/24 Rx tablet acetaminophen 500 mg tablet 1,000 mg PO TID PRN pain 08/26/24 10/22/24 History (Tylenol Extra Strength) atorvastatin 20 mg tablet (Lipitor) 20 mg PO HS 08/26/24 10/22/24 History Past Med/Surg History Problem List Arthritis of left hip Left trigger finger Complex renal cyst History of colon polyps Erectile dysfunction Prediabetes Cervicalgia Depressive disorder Gastroesophageal reflux disease Hypercholesterolemia Lower back pain Liver lesion Hypertension Hernia Medical History Left knee DJD Chronic kidney disease, stage 3a Prediabetes pt denies Hx of colonic polyps Depression Peripheral neuropathy feet Hypertension controlled, stable per pt Hx of basal cell carcinoma s/p excision Hx-TIA (transient ischemic attack) (~2004) ?CVA vs. TIA: ~2004 > doctor felt it was due to "stress and medications" per patient History of prostate cancer (02/2014) surgical intervention Painful total knee replacement right knee, following with Dr Lyons GERD (gastroesophageal reflux disease) controlled, stable per pt Hyperlipidemia Renal cyst monitoring Diverticulitis hx, last flare more than 1 year ago Surgical History History of total left knee replacement 06/25/24 SAB L3-L4, L2-3 3 attempts + PNB. History of right knee joint replacement History of right hip replacement S/P trigger finger release History of hydrocelectomy (08/27/23) left S/P foot surgery bilateral tarsal tunnel release History of testicular surgery undescended testicle surgery (as a child) History of arthroscopy of left shoulder History of lumbar surgery L2-L3 no hardware History of colonoscopy History of tonsillectomy History of arthroscopy left hip History of inguinal hernia repair x3 History of appendectomy History of prostatectomy (02/2014) Family History Mother Nicotine dependence Emphysema lung COPD (chronic obstructive pulmonary disease) Father Nicotine dependence Pure hypercholesterolemia Lung cancer Hypertension Sister Ovarian cancer Cerebral aneurysm Other Myocardial infarction No family history of adverse response to anesthesia Denies family history of Prostate cancer Coronary heart disease Breast cancer Colorectal cancer Social History Smoking Status: Former smoker Tobacco Type: Cigarettes Second Hand Exposure: No; Do You Dip or Chew Tobacco: No; Hx Alcohol Use: Yes Alcohol type: wine Hx Substance Use: No Preferred Language: Danish Communication Ability: Effective Visual Impairment: No Limitations Hearing Ability: Normal Market President Required: No Beliefs That Will Affect Care: None marital status: Current Living Situation: Spouse current occupational status: retired Feels Safe at Home: Yes Childhood Exposure to Second-Hand Smoke: Yes Diet: regular Diet Comment: Healthy Diet caffeine: Yes (1.c coffee daily) Dental Care, Regularly: Yes Physical Activity Frequency: Daily Seatbelt Use: always Sunscreen Use: Yes Assistive Devices: Glasses Review of Systems All systems reviewed & are unremarkable except as noted in HPI & below. Physical Exam . Physical examination reveals a pleasant middle-age male. Looks in excellent health. Examination of left hip and leg reveal patient ambulates independently. Minimal limp. Leg lengths are pretty equal to exam. He is got pain and limitation of internal rotation with the left hip. He can internally rotate about 10 degrees.'s does recreate his pain. He can do a good straight leg raise. He is neurologically intact. Constitutional WD/WN, vitals as above Respiratory normal respiratory effort, lungs clear to auscultation Cardiovascular RRR, no murmur, no edema Gastrointestinal (Abdomen) normal bowel sounds, soft, nontender, no hepatosplenomegaly Results & Data Results & Data Laboratory Results . Diagnostic Findings . X-rays of the left hip were reviewed. Shows moderate to advanced left hip arthritis. He still has a little bit joint space remaining but is significantly limited. He is got some inferior osteophytes. The right hip replacement looks to be in acceptable position without obvious issues. PG Care Time/CCT Total # of Minutes Spent Total Time Spent with Patient: Total time spent is greater than 50% in coordination of care (as documented) at patient's floor/unit and/or counseling patient: Coding Level of Care Code None Diagnoses Arthritis of left hip M16.12 Painful total knee replacement T84.84XA; Z96.659 Prediabetes R73.03 Depression F32.A Hypertension I10 Hx-TIA (transient ischemic attack) Z86.73 Hyperlipidemia E78.5
[2024-11-26] MEDS ORDERED: BUPIVACAINE 0.5 % 5 MG/1 ML PF 10ML VIAL ONE (06:20)
--- NOTE | 2024-11-26 06:42 | History & Physical Bridge Note ---
Date of Service November 26, 2024 History & Physical Bridge Note I have examined the patient, reviewed the History & Physical and in the interval since the performance of the History & Physical I have noted the following changes of clinical significance: no changes noted
[2024-11-26] MEDS: FAMOTIDINE 20 MG TAB PO SCH (06:53)
[2024-11-26] MEDS: LR 60ML/HR IV SCH (06:53)
[2024-11-26] MEDS: ACETAMINOPHEN 500 MG TAB PO SCH ×3 (06:53→15:47)
[2024-11-26] MEDS: METOCLOPRAMIDE HCL 10 MG TABLET PO SCH (06:53)
[2024-11-26] MEDS: CeleBREX 200 MG CAP PO SCH (06:53)
[2024-11-26] MEDS: dexAMETHasone**PF** 10 MG/ML VIAL IV SCH (06:54)
[2024-11-26] MEDS: LR 500ML BOLUS, THEN 15ML/HR IV SCH (06:54)
[2024-11-26] MEDS ORDERED: MIDAZOLAM HCL 1 MG/ML 2ML VIAL ONE (07:44)
[2024-11-26] MEDS ORDERED: LIDOCAINE 2% 2 ML VIAL/AMP(20MG/ML) INFIL ONE (07:44)
[2024-11-26] MEDS ORDERED: PROPOFOL IV EMULSION 10 MG/ML 20 ML VIAL IV ONE (07:44)
[2024-11-26] MEDS ORDERED: fentaNYL citrate PF 100 MCG/2 ML VIAL ONE (07:44)
[2024-11-26] MEDS ORDERED: ATROPINE SULFATE 0.1 MG/ML 10ML SYR IV PRN (08:04)
[2024-11-26] MEDS ORDERED: ePHEDrine sulfate 50 MG/ML AMP IV PRN (08:04)
[2024-11-26] MEDS ORDERED: PROMETHAZINE HCL 6.25 MG in SODIUM CHLORIDE 0.9% 50 ML IV PRN (08:04)
[2024-11-26] MEDS: TRANEXAMIC ACID 1,000 MG **IV Pre-op IV SCH (08:46)
[2024-11-26] MEDS: ceFAZolin 2000MG 2,000 MG/15 ML SYR IV SCH ×2 (09:01→16:32)
[2024-11-26] MEDS: BUPIVACAINE/EPINEPHRINE 0.5% MPF 1:200,000 30 ML VIAL ONE (09:32)
--- NOTE | 2024-11-26 10:24 | Operative Report ---
PG Post Operative Report Pre & Post Diagnosis Operation Date: 11/26/24 08:50 Pre-Op Diagnosis: Left Hip Osteoarthritis Post-Op Diagnosis: Left Hip Osteoarthritis I identified the patient and participated in the time-out.: Yes Procedure Operation Date: 11/26/24 08:50 Actual Procedures p Left Total Hip Arthroplasty, Uncemented(Left) - Jonny Lyons MD Surgeon Jonny Lyons MD Transliterator 8 VIJAY Little Estimated Blood Loss 100 Findings Consistent with Post-Op Diagnosis Specimens Left femoral head sent for pathology. Anesthesia Type Spinal MAC Complications none Disposition Accompanied Patient To Recovery: No Indications The patient is a 69-year-old gentleman whose had a history of multiple orthopedic issues and joint problems over the years. She is ready both knees and his right hip replaced in the past. Over the past several years he developed increased pain discomfort in his left hip described to gotten worse. He had his left knee replaced about 5 to 6 months ago and recovered from that nicely. Continued be limited by left hip and thigh pain. He elected proceed with left total hip arthroplasty. Description of Procedure Operative implants consist of: 1. Biomet G7 size 52 mm acetabular shell. 2. 6.5 cancellous acetabular screws 135 mm length 125 mm length. 3. Norman hole aquatic performer. 4. Highly cross-linked polyethylene liner with 52 mm outer diameter and 36 mm inner diameter. 5. DePuy Karaya size 10 femoral stem. 6. +5/36 mm ceramic articular ball. The patient was taken to the operating, identified, placed on the operative table in the supine position. All contact areas were appropriately padded. IV arrived fibra anesthesia team. A spinal anesthetic been implemented holding area. The patient is then placed in the right lateral decubitus position. An axillary roll was placed. Distal Birkett position was used for positioning. The left hip and leg were then prepped and draped in usual sterile fashion. A posterolateral approach to the left hip was then performed to a curvilinear incision centered over the greater trochanter. Sharp dissection was got through subcutaneous tissue dental of the IT band gluteal fascia. The IT band gluteal fascia incised longitudinally in line with skin incision. The underlying greater bursa was excised. The piriformis and external rotators along with the posterior hip joint capsule were then released in the posterior aspect the hip as a single layer. Great care was taken throughout the procedure protect the sciatic nerve at all times. Hip was then internally rotated and dislocated. A femoral neck osteotomy cut was made with Final Cut about 10 mm above the lesser trochanter. Femoral head was removed and sent for pathology. The femur was retracted anteriorly. Attention drawn the acetabulum. The acetabular labrum was excised. The pulmonary fat was excised. Sequential reaming the acetabular was then performed again with a size 47 and progressing up to 51. I did reamed a little bit with a 52 reamer and then placed a 52 mm Biomet G7 acetabular shell in about 40 degrees lateral opening and 20 degrees of anteversion. It was fixed with two 6.5 screws. A trial liner was placed. A ttention drawn the femur. The proximal femur was entered with cookie-cutter followed by canal finder. I then broached beginning with size 8 and progressing up to a 10. Get excellent fit and the 10. His cancellous bone support was quite robust. Calcar reamer was used smoothing off the calcar. We then trialed the hip and the +5 articular ball provided full stability appropriate soft tissue tension and what appeared to be equal leg lengths. We elect to place these implants. All trial implants were removed. An apex hole aquatic performer was placed 3 highly cross-linked polyethylene liner was placed. A size 10 KLA femoral stem was impacted in position. A +5 x 36 mm ceramic articular ball was placed. Hip was located once again found to be stable. Attention drawn toward closing. Wounds irrigated coconuts of pulsatile lavage solution. I did inject locally with 60 cc of half percent Marcaine with epinephrine. The posterior capsule Rotators then repaired through drill holes in the posterior trochanter with #2 Tycron suture. The IT band gluteal fascia then closed in 1 PDS suture running fashion the subcutaneous tissue then closed 2 layers with a deep layer #1 Vicryl suture in the more superficial layer and 2-0 Vicryl suture in buried interrupted fashion. Skin was closed skin rosalee. Leg was then cleaned and dried and sterile dressed with Xeroform, 4 fours, ABD pad, foam tape was applied. Patient then transferred to the cover room in stable condition. Patient tolerated procedure well and there were no complications. Mejia Little, my physician credit assistant, was present for the entire procedure. His assistance was essential and required for appropriate patient positioning, prepping and draping, surgical exposure, performing the technical details of the operation, placement the implants, closure of the wound, and placement of the sterile bandage. I attest to the content of the Intraoperative Record and any orders documented therein. Any exceptions are noted below.
--- NOTE | 2024-11-26 11:08 | XRay Report ---
XR hip 1V LT w pelvis HISTORY: 69 years-old Male IN PACU - Post Surgical left hip arthroplasty COMPARISON: 09/17/2024 TECHNIQUE: AP view of the pelvis with crosstable lateral view of the left hip FINDINGS: Right hip arthroplasty redemonstrated. Satisfactory alignment of the left hip arthroplasty with later al skin rosalee, expected postoperative soft tissue swelling with deep tissue air. No acute fracture or unexpected opaque foreign body. IMPRESSION: Left hip arthroplasty with expected postoperative changes. ACT 112: Negative or not required by law. The above report was generated using voice recognition software. It may contain grammatical, syntax o r spelling errors. Electronically signed by: Raymundo Hartman M.D. 11/26/2024 11:07 AM
--- NOTE | 2024-11-26 11:17 | Anesthesiology Progress Note ---
Date of Service November 26, 2024 Anesthesia Post Procedure Vital Signs Vital Signs: Temp Pulse Pulse Resp BP Pulse Ox O2 Del Method 11/26/24 11:05 78 21 104/80 96 Room Air 11/26/24 10:55 85 14 112/65 94 Room Air 11/26/24 10:45 77 18 121/62 95 Room Air 11/26/24 10:35 76 15 107/56 L 92 Room Air 11/26/24 10:25 79 15 106/55 L 94 Room Air 11/26/24 10:15 36.2 C L 84 13 96/54 L 98 Oxymask 11/26/24 06:32 36.5 C 69 18 131/68 99 Room Air O2 Flow Rate 11/26/24 11:05 0 11/26/24 10:55 0 11/26/24 10:45 0 11/26/24 10:35 0 11/26/24 10:25 0 11/26/24 10:15 8 11/26/24 06:32 Transfer of Care Handoff Completed per policy Notes Mental Status: alert / awake / arousable and participated in evaluation Nausea / Vomiting: adequately controlled Pain: adequately controlled Airway Patency, RR, SpO2: stable & adequate BP & HR: stable & adequate Hydration State: stable & adequate Anesthetic Complications: no major complications apparent and Pt Satisfied with anesthetic care
[2024-11-26] MEDS ORDERED: NON-FORMULARY MEDICATION (Sildenafil [Viagra] 100 mg tablet) PO PRN (11:35)
[2024-11-26] MEDS ORDERED: ALUMINUM/MAGNESIUM SUSP 30 ML UDC PO PRN (11:35)
[2024-11-26] MEDS ORDERED: FAMOTIDINE 20 MG TAB PO PRN (11:35)
[2024-11-26] MEDS ORDERED: DEXTROSE 50% 50 ML SYRINGE IV PRN (11:35)
[2024-11-26] MEDS ORDERED: GLUCOSE 10 TAB/TUBE PO PRN (11:35)
[2024-11-26] MEDS ORDERED: NO NSAIDS SCH (11:35)
[2024-11-26] MEDS ORDERED: GLUCOSE 40% GEL 15 GM TUBE PO PRN (11:35)
[2024-11-26] MEDS ORDERED: bisacodyL 10 MG SUPP PR PRN (11:35)
[2024-11-26] MEDS ORDERED: PHARMACY GLYCEMIC MGMT CONSULT PRN (11:35)
[2024-11-26] MEDS ORDERED: HYDROmorphone INJ 0.5 MG/0.5 ML SYR IV PRN (11:35)
[2024-11-26] MEDS ORDERED: MAGNESIUM HYDROXIDE SUSP 30 ML UDC PO PRN (11:35)
[2024-11-26] MEDS ORDERED: CARBOHYDRATES FOR HYPOGLYCEMIA PO PRN (11:35)
[2024-11-26] MEDS ORDERED: GLUCAGON FOR INJ 1 MG VIAL SQ PRN (11:35)
[2024-11-26] MEDS ORDERED: NALOXONE HCL 0.4 MG/1 ML VIAL/CARP IV PRN (11:35)
--- NOTE | 2024-11-26 12:26 | Pharmacy Report ---
Pharmacy Glycemic Short Note 2 - Date of Service November 26, 2024 - Glycemic Short OUTPATIENT ANTIDIABETIC REGIMEN: * N/A ASSESSMENT: * 69 year old s/p surgery, POD 0 - pharmacy consulted for glycemic management. Per provider notes, pre-diabetes. Patient did receive some IV steroids preoperatively and they are also continued ongoing. Potential steroid induced hyperglycemia possible. * Will start conservatively with just novolog for now with weight based stress of 1/2 dosing PLAN FOR INPATIENT GLYCEMIC CONTROL: * Hold outpatient oral diabetes medications * Basal insulin * Lantus - hold * Bolus insulin * NovoLog per scale ACHS or Q6hrs while NPO * Goal Range: Low 110 mg/dL - High 140 mg/dL * Correction Factor: 30 mg/dL/unit * Nutritional / Prandial insulin per carb ratio of 1 unit per 18 grams CHO consumed
[2024-11-26] MEDS: HYDROmorphone INJ 2 MG/ML SYR/VIAL IV PRN (13:40)
[2024-11-26] MEDS: INSULIN ASPART PER UNIT CHARGE SC SCH (17:36)
[2024-11-26] MEDS: ASCORBIC ACID 500 MG TAB PO SCH (18:01)
[2024-11-26] MEDS: TRANEXAMIC ACID / 0.7% NACL 1,000 MG/100 ML BAG IV SCH (18:03)
[2024-11-26] MEDS: ONDANSETRON INJ 2 MG/ML 2 ML VIAL IV PRN (18:41)
[2024-11-26] MEDS: oxyCODONE HCL IR 5 MG TAB (IMMEDIATE RELEASE) PO PRN (19:32)
[2024-11-26] MEDS: SENNA 8.6 MG TAB PO SCH ×2 (19:33→20:57)
[2024-11-26] MEDS: METOCLOPRAMIDE HCL INJ 5 MG/ML 2 ML VIAL IV PRN (19:37)
[2024-11-26] MEDS: SENNA 8.6 MG TAB PO ONE (20:49)
[2024-11-26] MEDS: DOCUSATE SODIUM 100 MG CAP PO SCH (20:52)
[2024-11-26] MEDS: ATORVASTATIN 20 MG TAB PO SCH (20:54)
[2024-11-26] MEDS: lisinopril 20 MG TAB PO SCH (20:54)
[2024-11-26] MEDS: ASPIRIN 81 MG ECTAB PO SCH (20:54)
[2024-11-26] MEDS: GABAPENTIN 100 MG CAP PO SCH (20:56)
[2024-11-27 03:51] VITALS: PULSE 70; RESP 18; TEMP 97.5; O2SAT 96
--- NOTE | 2024-11-27 07:10 | Orthopedic Progress Note ---
Date of Service November 27, 2024 Assessment & Plan (1) Status post left hip replacement: Plan: 69-year-old gentleman postop day 1 from a left hip replacement. He is doing well. Pains controlled. Hips located. He is neurologically intact. Plan: 1. DVT prophylaxis including [place] teds, SCDs, aspirin twice a day. 2. PT/OT. Weight-bear as top. Left total hip protocol. 3. Pain control doing okay with current pain regimen. 4. Disposition. Plan is to discharge to home with some home health if he does okay in therapy today. Admission and Anticipated Discharge Date Admission Date: November 26, 2024 Subjective 69-year-old gentleman postop day 1 from left hip replacement. He is doing well this morning. Had a good night. Pains controlled. He has been up and going to the bathroom. No chest pain or shortness of breath. Not feeling dizzy or lightheaded. Physical Exam Physical Exam: Physical exam shows a pleasant middle-age male. Lying bed looks pretty comfortable. Examination of the hip reveals dressing be clean dry and intact. Leg lengths are equal. He can dorsiflex and plantarflex his foot appropriately. He is neurologically intact. Respiratory: normal respiratory effort, lungs clear to auscultation Cardiovascular: RRR, no murmur, no edema Gastrointestinal (Abdomen): normal bowel sounds, soft, nontender, no hepatosplenomegaly Results & Data Vital Signs (Past 12 Hours) Vital Signs Temp Pulse Resp BP Pulse Ox O2 Del Method 11/27/24 03:50 36.4 C L 70 18 122/68 96 Room Air 11/27/24 00:11 36.5 C 71 16 142/82 H 98 Room Air 11/26/24 21:26 36.4 C L 80 16 142/68 H 97 Room Air Laboratory Results Labs are pending.
[2024-11-27 07:20] LABS: Basophils # (auto) 0.01 K/uL (0.00-0.20); Basophils % (auto) 0.2 %; Eosinophils # (auto) 0.02 K/uL (0.00-0.50); Eosinophils % (auto) 0.3 %; Hematocrit (blood only) 33.4 % (42.0-52.0); Hemoglobin 11.3 g/dl (14.0-18.0); Immature Granulocytes # (auto) 0.02 K/uL (0.01-0.20); Immature Granulocytes % (auto) 0.3 %; Lymphocytes # (auto) 0.98 K/uL (1.20-3.40); Lymphocytes % (auto) 16.4 %; Mean Corpuscular Hemoglobin 31.7 pg (25.0-34.0); Mean Corpuscular Hgb Conc 33.8 g/dL (32.0-36.0); Mean Corpuscular Volume 93.8 fL (80.0-100.0); Mean Platelet Volume 9.7 fL (9.4-12.4); Monocytes # (auto) 0.88 K/uL (0.11-0.59); Monocytes % (auto) 14.7 %; Neutrophils # (auto) 4.07 K/uL (1.40-6.50); Neutrophils % (auto) 68.1 %; Platelet Count 180 K/uL (130-400); RDW Coefficient of Variation 11.8 % (11.5-14.5); RDW Standard Deviation 40.3 fL (36.4-46.3); Red Blood Count 3.56 M/uL (4.70-6.10); White Blood Count 5.98 K/ul (4.8-10.8)
[2024-11-27 07:38] LABS: BUN Creatinine Ratio 24.2 (10-20); Calcium 9.4 mg/dl (8.6-10.3); Creatinine Clr Calc Pharmacy 56.4 ml/min; Potassium 4.7 mmol/L (3.5-5.1)
[2024-11-27 07:46] VITALS: BP 150/77
[2024-11-27] MEDS: TAMSULOSIN HCL 0.4 MG CAP PO SCH (08:29)
[2024-11-27] MEDS: MULTIVITAMIN TAB PO SCH (08:29)
[2024-11-27] MEDS: OMEGA-3 (PURIFIED FISH OIL) 1 GM CAP PO SCH (08:29)
[2024-11-27] MEDS: dexAMETHasone 10 MG in SYRINGE 0 ML IV SCH (08:29)
[2024-11-27] MEDS: hydroCHLOROthiazide 25 MG TAB PO SCH (08:29)
[2024-11-27] MEDS ORDERED: NON-FORMULARY MEDICATION (Aspirin 81 mg Capsule) PO SCH (09:00)
--- NOTE | 2024-11-30 12:29 | Discharge Summary ---
Date of Service November 30, 2024 Admission HPI (Per Admitting) . The patient is a 69-year-old gentleman who presents now for surgical treatment of his left hip. He has had a long history of multiple orthopedic issues and is now about 5 months out from the left knee replacement doing myself. He is doing quite well from this. He had his right knee replacement with Dr. Johnston 15 years ago and a right hip replacement done by Dr. Mims at [facility] over over 3 years ago. He is doing okay. His right knee continues to bother him some. He is mostly bothered by left hip pain discomfort and stiffness. Describes thigh pain buttock pain. It is limiting his activities. He would like to proceed with a left hip replacement. Admission Exam (Per Admitting) . Physical examination reveals a pleasant middle-age male. Looks in excellent health. Examination of left hip and leg reveal patient ambulates independently. Minimal limp. Leg lengths are pretty equal to exam. He is got pain and limitation of internal rotation with the left hip. He can internally rotate about 10 degrees.'s does recreate his pain. He can do a good straight leg raise. He is neurologically intact. Principal Diagnosis Same as "Discharge Diagnosis" noted below under Discharge Instructions. Discharge Data Procedures Performed Operation Date: 11/26/24 08:50 Actual Procedures p Left Total Hip Arthroplasty, Uncemented(Left) - Jonny Lyons MD Hospital Course (1) Status post left hip replacement: This is a 69 year old patient admitted on 11/26/24 and underwent total hip arthroplasty. He tolerated the procedure well and there were no complications. Transferred to the PACU post op and later to the orthopedic floor for further care. He was given ancef for antibiotic prophylaxis. He was also given HUSAM stockings, SCDs, and aspirin for DVT prophylaxis. Hemoglobin, hematocrit, and vital signs were monitored during his hospital stay and remained stable. Did not require any blood transfusions. There were no complications during his hospital stay. By post op day #1 the patient was tolerating a diabetic diet, pain was reasonably controlled with oral pain medicine, and he was participating in physical therapy. On post op day #1 the patient was discharged home and set up with home health care. He was given printed discharge instructions including prescriptions for extra strength tylenol, aspirin, cefadroxil, zofran, oxycodone, senokot, and flomax. Continue hip precautions. Continue physical therapy, weight bearing as tolerated. Continue HUSAM stockings. Follow up approximately 2 weeks post op or sooner if there are problems or concerns. Discharge Plan Discharge Items Patient Disposition: Home - Home Health Services Reason For Visit: Left Hip Osteoarthritis Discharge Diagnosis: Left Hip Replacement Activity: Per Instructions section Activity Comment: Follow/Obey hip precautions at all times. Weightbearing: Full weightbearing Weightbearing Comment: Weightbear as tolerated obeying hip precautions at all times. Non-emergency contact: Surgeon Call non-emergency contact if: you have any medication questions Follow-up/Referrals: Romeo Galvan MD [Primary Care Provider] - Diet: Carb Consistent or DM2 Addtl Attending Provider Instructions: ACTIVITY RECOMMENDATIONS: Diet: * You may resume previous diet. Physical Therapy: * Aggressive physical therapy is not usually needed. You will learn to take care of yourself safely and walk. * Follow the "Hip Precautions Instructions." * In some cases, the social worker delinquency prevention at the hospital will arrange to have a therapist come to your house for the first couple of weeks to help you learn these skills. * You need to practice on your own or with the help of a family member as needed. * When you learn these skills, most of the therapy can be done on your own. Home Exercise: * You were shown a series of exercises in the hospital. Do these exercises three to four times each day including the exercises you were shown in physical therapy. Walking: * Get up and walk several times each day. For the first four weeks, try not to stand or walk for more than one hour at a time. If you do stand or walk for more than one hour, you will not hurt anything, but your leg will likely swell. * As you feel comfortable, you may change from the walker or crutches to a cane and then to independent walking. MEDICATIONS: New Medicine: * You will likely be taking one or more of these medicines: 1. Oxycodone - Take, as directed, when you need it, every six hours to control your pain. 2. Aspirin - Thins your blood to lessen the chance of forming a blood clot. * The most common side effects of pain medicine and iron are nausea and constipation. If nausea or constipation is too much of a problem or if you have any questions about your new medicines or doses, call [facility] at . We will try to help you manage these issues. "VERY IMPORTANT TO READ AND REVIEW" Pain: * The immediate post-operative period after hip replacement surgery is often quite painful. * You are given a prescription for pain medicine. You should take it, as directed, when you need it, especially before physical therapy and before going to bed. Pain that interferes with sleep is very common and can last several months. * You will likely need pain medicine for the first two to four weeks. It will not stop all of the pain. The pain will lessen and as you feel better, you may change to milder pain medicine such as Tylenol. * The most common side effects of pain medicine are nausea and constipation, so don't take more than you need. SPECIAL CARE INSTRUCTIONS: TEDs/Elastic Stockings: * The white elastic stockings help limit swelling and prevent blood clots from forming in your legs. The more you wear them, the more they work. * Wear them for six weeks. Incision Site Care: * Remove dressing postoperative day 2 and then shower. Keep direct shower pressure off the incision site. * After showering, cover rosalee with dry gauze and change daily or more frequently if the dressing is getting saturated with drainage. * May completely stop using bandage if wound is dry and no drainage * [place] are removed between 2 and 3 weeks post-op. If your follow-up appointment is made before 2 weeks, please have your appointment re- scheduled. It is too early to remove the rosalee. Prevention of Infection: * Take antibiotics one hour before any dental cleaning, dental work, urological procedure, gastrointestinal procedure or any invasive surgery in order to prevent your new joint from getting infected. * You may get the antibiotics from the doctor performing the procedure or you may call our office at before and we will call in a prescription to the pharmacy of your choice. Things to Watch For: * Drainage from the incision site that occurs more than one week after your surgery. * Severely increased leg pain or swelling. * Increased redness at the incision site. * Fever above 102 degrees Fahrenheit. * Unusual chest pain or shortness of breath. * Unusual pain or burning with urination. Call [facility] at with any of the above problems or if you have any questions about your medicines or recovery. FOLLOW UP VISIT: Make an appointment to see your doctor for approximately two weeks after surgery for a progress check and staple removal by calling the office at . Pending Studies at Discharge: No Stand-Alone Forms: My [facility], Pain - Opioid Pain Management, Smoking Cessation Medications and DC Order Prescriptions: Continued famotidine 20 mg tablet 20 mg PO BID PRN (Reason: acid reflux) Qty: 180 3RF hydrochlorothiazide 25 mg tablet 25 mg PO QAM Qty: 90 3RF lisinopril 20 mg tablet 20 mg PO BID Qty: 180 3RF ondansetron 4 mg tablet,disintegrating 4 mg PO Q8 PRN (Reason: nausea) Qty: 20 1RF Rx Instructions: Take as needed for nausea oxycodone 5 mg tablet 5 - 10 mg PO Q6 PRN (Reason: pain) Qty: 40 0RF Rx Instructions: Take as needed for pain ondansetron 4 mg tablet,disintegrating 4 mg PO Q8 PRN (Reason: nausea) Qty: 20 1RF Rx Instructions: Take as needed for nausea sennosides [Senokot] 8.6 mg tablet 8.6 mg PO BID 14 Days Qty: 28 0RF Rx Instructions: Take two times a day to prevent/treat constipation acetaminophen [Tylenol Extra Strength] 500 mg tablet 1,000 mg PO TID 30 Days Qty: 180 0RF Rx Instructions: Take 3 times per day to lessen pain. aspirin [Geovanni Low Dose Aspirin] 81 mg tablet,delayed release (DR/EC) 81 mg PO BID 45 Days Qty: 90 0RF Rx Instructions: Take to prevent blood clots. tamsulosin [Flomax] 0.4 mg capsule 0.4 mg PO DAILY Qty: 7 0RF Rx Instructions: Begin night BEFORE surgery to prevent urinary retention cefadroxil 500 mg capsule 500 mg PO BID 7 Days Qty: 14 0RF Rx Instructions: Take 1 cap twice a day to prevent infection multivitamin [Multiple Vitamins] tablet 1 tab PO QAM diclofenac sodium 1 % gel 2 gm topical QID PRN (Reason: Pain) Qty: 5 sildenafil [Viagra] 100 mg tablet 100 mg PO UD PRN (Reason: sexual activity) Rx Instructions: administer 30 minutes to 4 hours before activity [place] 3-6-9 1,200 mg Capsule 1 cap PO QAM aspirin 81 mg Capsule 81 mg PO QAM gabapentin [Neurontin] 100 mg capsule 100 mg PO BID atorvastatin [Lipitor] 20 mg tablet 20 mg PO HS Discontinued acetaminophen [Tylenol Extra Strength] 500 mg tablet 1,000 mg PO TID PRN (Reason: pain) Rx Instructions: Take 3 times per day to lessen pain. Krames/Other Patient Handouts: DVT Post Op Prevention, How Your Hip Works, Hip Replace Post Op, Hip Replace Home Recovery Admission Data Admit Date/Time: 11/26/24 10:17 Attending Provider: Jonny Lyons Admit Provider: Jonny Lyons Primary Care Provider: Romeo Galvan Other Providers: [facility],Home Health Other Interventions: Discharge Summary Assessment (RN) Last Done: 11/27/24 10:13
== END 2024-11-27 11:00 | disposition home health service (06) ==
LOC: PACUINP 06:18 → ASU 06:18 → 3E 14:28